=== PATIENT | male | born 1940 | race Caucasian/White ===

== ENCOUNTER 2019-05-16 08:02 | Day surgery (SDC) | payer MEDICARE ==
[2019-05-12 12:50] LABS: BASOPHILS % (AUTO) 1.4 % (0.0-5.0); EOSINOPHILS % (AUTO) 1.7 % (0.0-8.0); HEMATOCRIT 46.7 % (42-54); LYMPHOCYTES % (AUTO) 24.2 % (21.0-51.0); MEAN CORPUSCULAR HGB CONC 32.8 g/dL (32.0-36.0); MEAN CORPUSCULAR VOLUME 97.7 fL (79-99); MONOCYTES % (AUTO) 14.2 % (3.0-13.0); NEUTROPHILS % (AUTO) 58.2 % (40.0-77.0); PLATELET COUNT (AUTO) 203 K/uL (130-400); RED BLOOD CELL COUNT(AUTO) 4.78 MIL/uL (4.50-6.20); RED CELL DISTRIBUTION WIDTH 13.1 % (11.0-15.5); WHITE BLOOD COUNT (AUTO) 8.7 K/uL (4.8-10.8)
[2019-05-12 12:59] LABS: CREATININE 0.8 mg/dL (0.5-1.5); POTASSIUM 4.9 mmol/L (3.5-5.1)
[2019-05-12 13:03] LABS: APPEARANCE,URINE Clear (CLEAR); BILIRUBIN,URINE Negative (NEGATIVE); COLOR,URINE Yellow (YELLOW); GLUCOSE, URINE (UA) Negative (NEGATIVE); KETONES,URINE Negative (NEGATIVE); LEUKOCYTE ESTERASE ,URINE Negative (NEGATIVE); NITRATE,URINE Negative (NEGATIVE); OCCULT BLOOD,URINE Negative (NEGATIVE); PROTEIN,URINE Negative (NEGATIVE)
[2019-05-12 13:21] VITALS: BP 150/76
[2019-05-12 13:21] LABS: PARTIAL THROMBOPLASTIN TIME 26.8 SEC (26.3-35.5)
[2019-05-12 14:04] LABS: INR 0.94 (0.85-1.15); PROTHROMBIN TIME 9.9 SEC (9.6-11.6)
[2019-05-16] VITALS (9 sets, daily range): BP systolic 127–164; BP diastolic 62–89
[~2019-05-16] VITALS: Ht 170.2 cm; Wt 77.7 kg
[~2019-05-16 08:02] MED LIST: ASPI-556 PO; METO-408 PO; SODIUM CHLORIDE 0.9% 1000ML 1,000 ML IV SCH
[2019-05-16] MEDS ORDERED: IOHEXOL 350 MG/ML 100ML INFUS..BTL IV ONE (09:52)
[2019-05-16] MEDS ORDERED: HEPARIN SODIUM 1000UNIT/ML 10ML VIAL ONE (09:52)
[2019-05-16] MEDS ORDERED: IOHEXOL-350 50ML VIAL IV ONE (09:52)
[2019-05-16] MEDS ORDERED: MIDAZOLAM HCL 1 MG/ML 2ML VIAL ONE (09:52)
[2019-05-16] MEDS ORDERED: NITROGLYCERIN 2 MG/VIAL VIAL IV ONE (09:52)
[2019-05-16] MEDS ORDERED: LIDOCAINE HCL 2% 20ML ONE (09:53)
[2019-05-16] MEDS ORDERED: FENTANYL CITRATE PF 50 MCG/1 ML 2ML VIAL ONE (09:53)
[2019-05-16] MEDS ORDERED: NICARDIPINE HCL 25 MG/10 ML ML IV ONE (10:41)
[2019-05-16] MEDS ORDERED: MORPHINE SULFATE 2 MG/ML 1ML SYG ONE (13:02)
== END 2019-05-16 15:30 | disposition home or self-care (01) ==
LOC: DAH 08:02
PROVIDERS: ATTEND Internal Medicine Cardiovascular Disease
DX: I25.10 Atherosclerotic heart disease of native coronary artery without angina pectoris (principal); I25.82 Chronic total occlusion of coronary artery; F17.210 Nicotine dependence, cigarettes, uncomplicated; Z98.890 Other specified postprocedural states; Z79.01 Long term (current) use of anticoagulants; Z79.82 Long term (current) use of aspirin; Z79.899 Other long term (current) drug therapy
CPT/HCPCS: 36415; 71045; 80048; 81003; 85025; 85347; 85610; 85730; 93005; 93454; A4215; A4216; A4221; A4222; A4223 ×3; A4606; A4663; C1760; C1769 ×3; C1894 ×3; J1644 ×2; J2250; J3010; J3490 ×3; J7030; Q9965; Q9967 ×2; 99156; 99157